=== PATIENT | male | born 1945 | race Caucasian/White ===

== ENCOUNTER 2019-07-03 10:19 | Inpatient (IN) | payer MEDICARE, OTHER ==
[2019-07-03 11:23] LABS: Hemoglobin 13.5 g/dL (14.0-18.0); Mean Corpuscular HGB CONC 34.1 g/dL (32.0-36.0); Mean Corpuscular Hemoglobin 34.2 pg (27.0-31.0); Mean Platelet Volume 7.8 fL (7.4-10.4); Platelet Count 132 thou/uL (130-400); RBC Distribution Width 11.5 % (11.5-14.5); Red Blood Cell (RBC) Count 3.95 mill/uL (4.70-6.10); White Blood Cell (WBC) Count 6.5 thou/uL (4.8-10.8)
[2019-07-03 11:33] LABS: Bilirubin 2+ (Negative); Blood, Urine Negative (Negative); Clarity Clear (Clear); Glucose, Urine (Dipstick) Normal (Negative); Leukocyte Negative Leu/uL (Negative); Nitrite Negative (Negative); Protein, Urine (Dipstick) 20 mg/dL (Neg-Trace)
[2019-07-03 11:39] LABS: Eosinophils 4 % (0-10); Large Platelets MODERATE; Lymphocytes 8 % (21-51); MDiff Complete? YES; Monocytes 24 % (0-10); Neutrophil 62 % (42-75); Platelet Morphology Comment Appears Adequate; Reactive Lymphocytes 1 % (0-10)
[2019-07-03 11:44] LABS: ALT (SGPT) 44 U/L (8-55); AST (SGOT) 37 U/L (5-34); Albumin 3.8 g/dL (3.4-4.8); Alcohol Less than 10 mg/dL (Less than 10); Alkaline Phosphatase 62 U/L (40-110); Anion Gap 12 mmol/L (10-20); BUN (Urea Nitrogen) 18 mg/dL (8.4-25.7); Bilirubin, Total 0.5 mg/dL (0.2-1.2); Calc. Creatinine Clearance 0 mL/min (70-130); Calcium 8.9 mg/dL (7.8-10.44); Carbon Dioxide 27 mmol/L (23-31); Chloride 99 mmol/L (98-107); Estimated GFR-MDRD Greater than 90; Globulin 2.8 g/dL (2.4-3.5); Glucose 110 mg/dL (83-110); Lipase 17 U/L (8-78); Magnesium 1.7 mg/dL (1.6-2.6); Potassium 3.8 mmol/L (3.5-5.1); Protein, Total 6.6 g/dL (5.8-8.1); Sodium 134 mmol/L (136-145)
--- NOTE | 2019-07-03 11:52 | RAD ---
EXAM: Single view of the chest HISTORY: Dyspnea COMPARISON: None FINDINGS: Single view of the chest shows a normal sized cardiomediastinal silhouette. There is no delilah dence of consolidation, mass, or pleural effusion. Degenerative changes are seen in the spine. IMPRESSION: No evidence of acute cardiopulmonary disease
--- NOTE | 2019-07-03 12:11 | CT ---
CT BRAIN WITHOUT CONTRAST: HISTORY: Fall. Weakness. Dizziness. COMPARISON: None. FINDINGS: Mild atrophy and moderate microvascular ischemic changes, chronic. No acute hemorrhage or infarct. No midline shift. No mass effect. The calvarium is intact. Paranasal sinuses and mastoids are clear. IMPRESSION: Chronic changes. No acute intracranial abnormality. POS: CET
[2019-07-03] MEDS ORDERED: Aspirin Chewable 81 MG TAB ONE (12:53)
[2019-07-03 14:38] LABS: Troponin I Less than 0.010 ng/mL (< 0.028)
[2019-07-03] MEDS ORDERED: HYDROcodone/Acetaminophen 5/325 mg Tablet PO PRN (14:38)
[2019-07-03] MEDS ORDERED: Senokot S 8.6-50 MG TAB PO PRN (14:38)
[2019-07-03] MEDS ORDERED: HumaLOG 300 UNITS/3 ML VIAL SC PRN (14:38)
[2019-07-03] MEDS ORDERED: Ondansetron PF 4 MG/2 ML Vial IVP PRN (14:38)
[2019-07-03] MEDS ORDERED: Dextrose 5% in Water 1,000 ML IV PRN (14:38)
[2019-07-03] MEDS ORDERED: Ondansetron ODT 4 MG TAB PO PRN (14:38)
[2019-07-03] MEDS ORDERED: Bisacodyl 10 MG SUPP PR PRN (14:38)
[2019-07-03] MEDS ORDERED: Dextrose 50% Abboject 50 ML SYRINGE SLOW IVP PRN (14:38)
[2019-07-03] MEDS ORDERED: Enoxaparin Sodium 40 MG/0.4 ML SYRINGE SC SCH (14:45)
--- NOTE | 2019-07-03 15:51 | MRI ---
EXAM: MRI of the brain without contrast HISTORY: Bilateral leg weakness for a few days COMPARISON: CT brain 07/03/2019 TECHNIQUE: Multiplanar multisequence MR images were obtained of the brain without IV contrast. FINDINGS: Scattered foci of high T2/FLAIR signal in the subcortical and periventricular white matter are likely secondary to small vessel ischemic disease. No restricted diffusion. No hydronephrosis. No extra-axial fluid collection or intracranial hemorrhage. The expected flow voids are present. Corpus callosum, pituitary, and craniocervical junction are within normal limits. The calvarium is unremarkable. A 1.5 cm well-circumscribed focus of low T1 and T2 signal is seen in t he posterior left parietal scalp which corresponds to the calcified mass on CT. The paranasal sinuses and mastoid air cells are well aerated. IMPRESSION: No evidence of acute intracranial abnormality.
--- NOTE | 2019-07-03 16:23 | HP ---
PRIMARY CARE PHYSICIAN: Out of town physician. CHIEF COMPLAINT: Lower extremity weakness. HISTORY OF PRESENT ILLNESS: A 74-year-old male with known history of degenerative joint disease, prediabetes, who presented to the hospital due to acute worsening of lower extremity weakness. The patient reported progressive lower extremity weakness since about 1 week , culminating in inability to get out of bed earlier today, hence was taken to the ER in [place], from where he was transferred over here. The patient is not a very eloquent historian. Following history was obtained from review of medical record and talking with the patient. Spouse however is not at the bedside at present. Reportedly, the patient has been having worsening lower extremity weakness since about 1 week, associated with falls. Earlier today, he was unable to get out of bed, hence took him to the ER in [place], from where he was transferred over here. The patient also reported cough with pleuritic chest pain, but denied shortness of breath, fever, nausea, vomiting, headache, dizziness, abdominal pain, back pain, dysuria, hematuria, urinary retention, or painful micturition. He also denied leg swelling, focal weakness other than bilateral lower extremity weakness, change in vision, vertigo, or change in hearing or double vision. He also denied confusion, slurred speech, or facial droop. For unclear reason, acute CVA was considered, necessitating admission for further evaluation. The patient also denied back or neck pain. He admitted to occasional alcohol use, but denied bingeing on alcohol with last drink being about 3 weeks ago. In the ER, the patient was evaluated with CT scan of the brain, which was unremarkable. There is some confusion as to the onset of symptoms, initially said to be one week, somehow in the note, it was also said the patient has symptoms started about 2 days ago. There was also a report of vertigo, but the patient denied dizziness or head spinning. It was also reported in the note that the patient had a fall, but the patient denied falling. It also was reported that there is some confusion; however, the patient seems appropriate, though not a very good historian. PAST MEDICAL HISTORY: 1. Prediabetes. 2. Degenerative joint disease. 3. BPH. 4. Questionable hypertension as the patient's medication showed lisinopril, though the patient reported that, that is his 's medication, but clearly the patient name is on the tab. Also, the patient was prescribed Tamiflu yesterday, July 02, 2019, but he denied having nasal congestion or fever and reported that the Tamiflu was for prevention of flu. PAST SURGICAL HISTORY: Tonsillectomy. FAMILY HISTORY: Significant for leukemia in both parents. SOCIAL HISTORY: The patient lives with spouse. Drinks alcohol occasionally with last drink being about 3 weeks ago when he took four cans of beer. He denied smoking or recreational drug use. He wants to be full code with spouse being the surrogate decision maker. ALLERGIES: PENICILLIN. HOME MEDICATIONS: 1. Flomax 0.4 mg p.o. daily. 2. Bumetanide 1 mg p.o. once a day p.r.n. for swelling. 3. Methocarbamol 500 mg 1 to 2 tablets daily. 4. Myrbetriq 25 mg p.o. daily. 5. Alendronate 70 mg p.o. weekly. 6. Lisinopril 2.5 mg daily. 7. Oxaprozin 600 mg b.i.d. 8. Tamiflu 75 mg once a day. 9. Meloxicam 15 mg once a day. 10. Venlafaxine 75 mg daily. 11. Metformin 500 mg b.i.d. 12. Etodolac 400 mg b.i.d. 13. Baclofen 10 mg four times a day as needed. REVIEW OF SYSTEMS: A 12-point review of systems was negative other than pertinent positives and negatives included in the history of present illness. PHYSICAL EXAMINATION: VITAL SIGNS: Temperature 98.8, pulse 92, respiratory rate 16, SpO2 of 95 on room air, blood pressure is 145/84. GENERAL: Obese male, in no obvious distress. Afebrile, anicteric, acyanotic. HEENT: Normocephalic and atraumatic. Oral mucosa is moist. NECK: Supple with no JVD. CARDIOVASCULAR: Regular rhythm and rate with soft systolic murmur. RESPIRATORY: Fair air entry bilaterally with no obvious crackle or rhonchi or use of accessory muscles. GI: Obese, soft, nontender, nondistended with normal bowel sounds. EXTREMITIES: Grossly normal looking, atraumatic with no edema or erythema. Distal pulses are palpable. PROFESSOR OF COUNSELING: Conscious, alert, oriented x3 with appropriate mental status. Cranial nerves 2 through 12 are grossly intact. The patient moves all extremities. Power is 4 to 5/5 in upper limbs and 3 to 4/5 in lower limbs. Mild tremor of upper limbs noted. Sensation is grossly normal. Gait was not tested. LABORATORY DATA: CBC showed WBC count of 6.5, hemoglobin of 13.5, MCV of 100, platelets of 132. CMP showed sodium of 134, potassium 3.8, chloride 99, CO2 of 27, BUN 18, creatinine 0.80, glucose 110, calcium 8.9, total bilirubin 0.5, AST 37, ALT 44, alkaline phosphatase 62, total protein 6.6, albumin 3.8, globulin 2.8. Lipase is 17. Magnesium is 1.7. Serial troponin has been unremarkable with initial one being 0.013 and 3 hours later 0.010. BNP is 83.4. Urinalysis showed yellow clear urine with pH of 6.0, specific gravity of 1.029, urine protein of 20, normal glucose, negative ketone, blood, nitrite, and leukocyte esterase. Toxicology showed plasma alcohol level of less than 10. EKG showed normal sinus rhythm with rate of 96. T-wave inversion in inferior and anterior leads III, aVF, and V1 to V3 noted. Chest x-ray showed normal-sized cardiomediastinal silhouette with no evidence of consolidation, mass, or pleural effusion. Degenerative changes are seen in the spine. CT scan of the brain without contrast showed mild atrophy and moderate microvascular ischemic changes, which are chronic with no acute hemorrhagic change or infarct. No midline shift or mass effect. Calvaria is intact with clear paranasal sinuses and mastoid. ASSESSMENT: 1. Acute lower extremity weakness and gait instability: Etiology is unclear. Acute cerebrovascular accident is a concern as well as medication induced muscular weakness is considered. The patient is on multiple muscle relaxants including baclofen and methocarbamol. 2. Physical deconditioning. 3. Abnormal EKG with T-wave inversion in leads III, aVF, V1 to V3. This is concerning for acute coronary syndrome. However, troponin has been unremarkable and the patient denied chest pain. 4. Pleuritic chest pain with cough: Chest x-ray was unremarkable. 5. Degenerative joint disease. 6. BPH, on Flomax and Myrbetriq. 7. Prediabetes, on metformin. PLAN: 1. We will admit the patient to the stroke unit. 2. We will get MRI of the brain to rule out acute CVA. 3. We will also get Neurology consult. 4. We will get PT, OT, and Speech to evaluate the patient. 5. We will also get echocardiogram to assess cardiac function. 6. We will get further troponin series. 7. We will hold all muscle relaxants at this time. 8. DVT prophylaxis with Lovenox will be commenced. 9. Diabetic diet will be commenced as well. 10. Code status, full code. Spouse is the surrogate decision maker. Further treatment to follow depending on hospital course. Job ID: [id number]
[2019-07-03 17:40] LABS: Troponin I Less than 0.010 ng/mL (< 0.028)
[2019-07-03 18:53] VITALS: BMI 39.6
[2019-07-03] MEDS: Famotidine 20 MG TAB PO SCH (22:03)
[2019-07-03] MEDS: Famotidine/PF 20 mg/2ml Vial SLOW IVP SCH (22:04)
[2019-07-03] MEDS: Atorvastatin Calcium 40 MG TAB PO SCH (22:04)
[2019-07-04 05:01] LABS: Albumin 3.6 g/dL (3.4-4.8); Anion Gap 14 mmol/L (10-20); BUN (Urea Nitrogen) 16 mg/dL (8.4-25.7); BUN/Creatinine Ratio 22.22; Calc. Creatinine Clearance 167 mL/min (70-130); Calcium 8.5 mg/dL (7.8-10.44); Carbon Dioxide 24 mmol/L (23-31); Cardiac Risk 3.9 (Less than 4.5); Chloride 102 mmol/L (98-107); Cholesterol 176 mg/dl (< 200 Desired); Estimated GFR-MDRD Greater than 90; Glucose 109 mg/dL (83-110); HDL Cholesterol 45 mg/dL (>60 Neg Risk); LDL Cholesterol, Calculated 118 mg/dL; Phosphorus 2.9 mg/dL (2.3-4.7); Potassium 3.5 mmol/L (3.5-5.1); Sodium 136 mmol/L (136-145); Triglycerides 67 mg/dL (Less than 150)
[2019-07-04 05:02] LABS: Band 4 % (5-11); Eosinophils 1 % (0-10); Hemoglobin 13.2 g/dL (14.0-18.0); Hypochromia SLIGHT = 6-15 cells (100X) (0-5/hpf); Lymphocytes 11 % (21-51); MDiff Complete? YES; Mean Corpuscular HGB CONC 34.5 g/dL (32.0-36.0); Mean Corpuscular Hemoglobin 34.3 pg (27.0-31.0); Mean Corpuscular Volume 99.6 fL (78.0-98.0); Mean Platelet Volume 8.1 fL (7.4-10.4); Monocytes 7 % (0-10); Neutrophil 77 % (42-75); Nucleated RBC 1 % (0); Platelet Count 136 thou/uL (130-400); Platelet Morphology Comment Appears Adequate; RBC Distribution Width 11.4 % (11.5-14.5); Red Blood Cell (RBC) Count 3.84 mill/uL (4.70-6.10); White Blood Cell (WBC) Count 8.1 thou/uL (4.8-10.8)
--- NOTE | 2019-07-04 07:58 | ULT ---
EXAM: Carotid ultrasound HISTORY: Stroke/TIA COMPARISON: None TECHNIQUE: Multiplanar grayscale and color Doppler images were obtained in a carotid ultrasound. Spec tral analysis of the Doppler waveforms were performed. FINDINGS: No significant plaque is visualized in either internal carotid artery. No significant plaque is seen in either common carotid artery. The Doppler waveforms are normal in the visualized vessels. Peak systolic velocity in the right internal carotid artery 60 cm/s. Peak systolic velocity in the right common carotid artery 65 cm/s. The right ICA/CCA ratio is 0.9. Peak systolic velocity in the left internal carotid artery 40 cm/s. Peak systolic velocity in the left common carotid artery 89 cm/s. The left ICA/CCA ratio is 0.4. Both vertebral arteries demonstrate antegrade flow without focal stenosis IMPRESSION: No evidence of hemodynamically significant stenosis.
[2019-07-04] MEDS: Famotidine/PF 20 mg/2ml Vial SLOW IVP SCH ×2 (08:48→20:02)
[2019-07-04] MEDS: Aspirin 325 mg Enteric Coated Tablet PO SCH (08:49)
[2019-07-04] MEDS: Enoxaparin Sodium 40 MG/0.4 ML SYRINGE SC SCH (08:49)
[2019-07-04] MEDS: Famotidine 20 MG TAB PO SCH ×2 (08:49→20:02)
--- NOTE | 2019-07-04 14:23 | PDOC.HOSPP ---
- Subjective Encounter Date: 07/04/19 Encounter Time: 09:17 Subjective: 74 y/o male with history of lumbar compression fracture following a fall in 2018 admitted with progressive lower extremity weakness and gait instability associated with a fall on 06/28/2019 admitted due to inability to get up from his bed concerning for acute CVA. Evaluation with CT and MRI brain were negative for acute CVA but patient was noted to have severe dysphagia and gait instability. Had low grade fever of 100.5 overnight. - Objective Vital Signs & Weight: Vital Signs (12 hours) Temp Pulse Pulse Pulse Resp BP BP 07/04/19 11:52 99.3 F 91 18 07/04/19 09:25 90 98 116/72 125/73 07/04/19 07:30 100.5 F H 85 20 07/04/19 04:00 98.7 F 89 20 07/04/19 03:11 89 BP Pulse Ox 07/04/19 11:52 126/72 88 L 07/04/19 09:25 07/04/19 07:30 131/76 92 L 07/04/19 04:00 134/62 93 L 07/04/19 03:11 134/62 Weight Weight 284 lb 8 oz Result Diagrams: 07/04/19 04:19 07/04/19 04:19 Additional Labs: Accuchecks 07/04/19 07/04/19 07/03/19 10:28 06:04 23:33 POC Glucose 103 104 137 H Hospitalist ROS - Medication Medications: Active Medications Generic Name Dose Route Start Last Admin Trade Name Freq PRN Reason Stop Dose Admin Aspirin 325 mg 07/04/19 09:00 07/04/19 08:49 Ecotrin PO 325 mg DAILY DAMON Administration Atorvastatin Calcium 40 mg 07/03/19 21:00 07/03/19 22:04 Lipitor PO 40 mg HS DAMON Administration Enoxaparin Sodium 40 mg 07/04/19 09:00 07/04/19 08:49 Lovenox SC 40 mg 0900 DAMON Administration Famotidine 20 mg 07/03/19 21:00 07/04/19 08:48 Pepcid SLOW IVP Not Given Q12HR DAMON Famotidine 20 mg 07/03/19 21:00 07/04/19 08:49 Pepcid PO 20 mg BID DAMON Administration Sodium Chloride 10 ml 07/03/19 14:38 07/03/19 22:03 Flush - Normal Saline IVF 10 ml PRN PRN Administration Saline Flush - Exam General Appearance: awake alert General - other findings: obese Eye: anicteric sclera ENT: normocephalic atraumatic, dry oral mucosa Neck: supple, symmetric, no JVD Heart: RRR Respiratory: no wheezes, no rales, no ronchi, normal chest expansion, no tachypnea Gastrointestinal: soft, non-tender, non-distended, normal bowel sounds Extremities: no cyanosis, no edema Neurological: cranial nerve grossly intact, no focal deficits Neurological - other findings: cranial nerves 2-12 are grossly intact. Power is decreased both lower limbs Psychiatric: A&O x 3 Hosp A/P (1) Oropharyngeal dysphagia Code(s): R13.12 - DYSPHAGIA, OROPHARYNGEAL PHASE Status: Acute (2) Gait instability Code(s): R26.81 - UNSTEADINESS ON FEET Status: Acute (3) Functional quadriplegia Code(s): R53.2 - FUNCTIONAL QUADRIPLEGIA Status: Acute (4) Obesity (BMI 35.0-39.9 without comorbidity) Code(s): E66.9 - OBESITY, UNSPECIFIED Status: Acute (5) Chronic back pain Code(s): M54.9 - DORSALGIA, UNSPECIFIED; G89.29 - OTHER CHRONIC PAIN Status: Acute (6) Aspiration into respiratory tract Code(s): T17.908A - UNSP FB IN RESP TRACT, PART UNSP CAUSING OTH INJURY, INIT Status: Acute (7) Prediabetes Code(s): R73.03 - PREDIABETES Status: Acute - Plan NPO Speech therapy to continue. Start gentle IVF therapy to maintain hydration. Case management to help with placement. Will benefit from inpatient rehab. Continue sliding scale insulin. hold muscle relaxants. DVT prophylaxis addressed.
[2019-07-04] MEDS ORDERED: D5 1/4 NS w/20 mEq KCL 1,000 ML IV SCH (14:45)
[2019-07-04] MEDS: Acetaminophen 325 MG TAB PO PRN (17:21)
[2019-07-04] MEDS: Atorvastatin Calcium 40 MG TAB PO SCH (20:02)
[2019-07-05] MEDS: Acetaminophen 325 MG TAB PO PRN ×3 (08:44→20:24)
[2019-07-05] MEDS: Enoxaparin Sodium 40 MG/0.4 ML SYRINGE SC SCH (08:44)
[2019-07-05] MEDS: Aspirin 325 mg Enteric Coated Tablet PO SCH (08:44)
[2019-07-05] MEDS: Famotidine 20 MG TAB PO SCH ×2 (08:44→20:24)
[2019-07-05] MEDS: Famotidine/PF 20 mg/2ml Vial SLOW IVP SCH ×2 (08:45→20:33)
--- NOTE | 2019-07-05 11:07 | RAD ---
Modified barium swallow: 07/05/2019 HISTORY: Unspecified dysphasia, feeding difficulties FINDINGS: Modified barium swallow was performed in conjunction with a member division of speech patho logy. The patient is imaged in the lateral projection swallowing various consistencies of barium. Secondary to body habitus and obscuration by the patient's shoulders, it is difficult to evaluate the level of the cords. There is penetration with multiple consistencies, including pureed material and thin liquids. There is probable aspiration with the thin liquids. Please see speech pathology for full detail and feeding recommendations. IMPRESSION: Modified barium swallow as detailed above.
--- NOTE | 2019-07-05 15:55 | PDOC.HOSPP ---
- Subjective Encounter Date: 07/05/19 Encounter Time: 08:53 Subjective: 74 y/o male with history of lumbar compression fracture following a fall in 2018 admitted with progressive lower extremity weakness and gait instability associated with a fall on 06/28/2019 admitted due to inability to get up from his bed concerning for acute CVA. Evaluation with CT and MRI brain were negative for acute CVA but patient was noted to have severe dysphagia and gait instability. having intermittent low grade fever as well as some upper respiratory symptoms. Reportedly had sick contact with gran child with flu. Denied SOB.Reported occasional pleuritic chest pain. - Objective Vital Signs & Weight: Vital Signs (12 hours) Temp Pulse Pulse Pulse Resp BP BP 07/05/19 15:49 99.5 F 75 20 07/05/19 11:46 97.7 F 75 17 07/05/19 09:02 79 80 134/78 136/79 07/05/19 07:35 100.6 F H 81 16 07/05/19 04:00 99.7 F H 84 18 BP Pulse Ox 07/05/19 15:49 113/73 92 L 07/05/19 11:46 128/77 94 L 07/05/19 09:02 07/05/19 07:35 118/68 92 L 07/05/19 04:00 122/71 94 L Weight Weight 284 lb 8 oz I&O: 07/04/19 07/05/19 07/06/19 06:59 06:59 06:59 Intake Total 2 1300 Balance 2 1300 Result Diagrams: 07/04/19 04:19 07/04/19 04:19 Additional Labs: Accuchecks 07/05/19 07/05/19 07/04/19 12:03 06:11 19:58 POC Glucose 121 H 113 H 118 H 07/04/19 17:05 POC Glucose 99 Hospitalist ROS - Medication Medications: Active Medications Generic Name Dose Route Start Last Admin Trade Name Freq PRN Reason Stop Dose Admin Acetaminophen 650 mg 07/03/19 14:38 07/04/19 17:21 Tylenol PO 650 mg Q4H PRN Administration Headache/Fever/Mild Pain (1-3) Aspirin 325 mg 07/04/19 09:00 07/05/19 08:44 Ecotrin PO 325 mg DAILY DAMON Administration Atorvastatin Calcium 40 mg 07/03/19 21:00 07/04/19 20:02 Lipitor PO Not Given HS DAMON Enoxaparin Sodium 40 mg 07/04/19 09:00 07/05/19 08:44 Lovenox SC 40 mg 0900 DAMON Administration Famotidine 20 mg 07/03/19 21:00 07/05/19 08:45 Pepcid SLOW IVP Not Given Q12HR DAMON Famotidine 20 mg 07/03/19 21:00 07/05/19 08:44 Pepcid PO 20 mg BID DAMON Administration Potassium Chloride 20 meq/ 1,010 mls @ 50 mls/hr 07/04/19 15:45 07/04/19 15: 52 Dextrose/Sodium Chloride IV 1,010 mls INF DAMON Administration Sodium Chloride 10 ml 07/03/19 14:38 07/04/19 20:03 Flush - Normal Saline IVF 10 ml PRN PRN Administration Saline Flush - Exam General Appearance: awake alert Eye: anicteric sclera ENT: normocephalic atraumatic, moist mucosa Neck: symmetric, no JVD Heart: RRR Respiratory: no wheezes, no rales, no ronchi, normal chest expansion Gastrointestinal: soft, non-tender, non-distended, normal bowel sounds Extremities: no cyanosis, no edema Neurological: cranial nerve grossly intact, no new deficit Neurological - other findings: memory lapses noted Psychiatric: A&O x 3 Hosp A/P (1) Oropharyngeal dysphagia Code(s): R13.12 - DYSPHAGIA, OROPHARYNGEAL PHASE Status: Acute (2) Gait instability Code(s): R26.81 - UNSTEADINESS ON FEET Status: Acute (3) Functional quadriplegia Code(s): R53.2 - FUNCTIONAL QUADRIPLEGIA Status: Acute (4) Obesity (BMI 35.0-39.9 without comorbidity) Code(s): E66.9 - OBESITY, UNSPECIFIED Status: Acute (5) Chronic back pain Code(s): M54.9 - DORSALGIA, UNSPECIFIED; G89.29 - OTHER CHRONIC PAIN Status: Acute (6) Aspiration into respiratory tract Code(s): T17.908A - UNSP FB IN RESP TRACT, PART UNSP CAUSING OTH INJURY, INIT Status: Acute (7) Prediabetes Code(s): R73.03 - PREDIABETES Status: Acute (8) Fever Code(s): R50.9 - FEVER, UNSPECIFIED Status: Acute - Plan Restart oral intake with dysphagic diet as per Speech Get Repiratory viral panel Continue insulin therapy PT/OT/TERRAPIN FISHER to continue Case management to help with placement. Continue sliding scale insulin. DVT prophylaxis addressed. Get ESR, CRP as well as repeat CBC and CMP in the am.
[2019-07-05] MEDS: Oseltamivir 75 MG CAP PO SCH (20:25)
[2019-07-05] MEDS: Atorvastatin Calcium 40 MG TAB PO SCH (20:25)
[2019-07-05] MEDS ORDERED: guaiFENesin 200 MG TAB PO PRN (21:02)
[2019-07-06 04:58] LABS: Hemoglobin 13.2 g/dL (14.0-18.0); Mean Corpuscular HGB CONC 33.6 g/dL (32.0-36.0); Mean Corpuscular Hemoglobin 33.7 pg (27.0-31.0); Mean Platelet Volume 7.9 fL (7.4-10.4); Platelet Count 132 thou/uL (130-400); RBC Distribution Width 11.4 % (11.5-14.5); Red Blood Cell (RBC) Count 3.92 mill/uL (4.70-6.10); White Blood Cell (WBC) Count 5.1 thou/uL (4.8-10.8)
[2019-07-06 05:19] LABS: ALT (SGPT) 36 U/L (8-55); AST (SGOT) 41 U/L (5-34); Albumin 3.3 g/dL (3.4-4.8); Alkaline Phosphatase 60 U/L (40-110); Anion Gap 11 mmol/L (10-20); BUN (Urea Nitrogen) 16 mg/dL (8.4-25.7); Bilirubin, Total 0.7 mg/dL (0.2-1.2); CRP (Inflammatory) 4.46 mg/dL (= or < 0.5); Calc. Creatinine Clearance 167 mL/min (70-130); Calcium 8.5 mg/dL (7.8-10.44); Carbon Dioxide 27 mmol/L (23-31); Chloride 103 mmol/L (98-107); Estimated GFR-MDRD Greater than 90; Globulin 2.7 g/dL (2.4-3.5); Glucose 103 mg/dL (83-110); Potassium 3.6 mmol/L (3.5-5.1); Sodium 137 mmol/L (136-145)
[2019-07-06] MEDS: Famotidine 20 MG TAB PO SCH ×2 (09:13→21:31)
[2019-07-06] MEDS: Aspirin 325 mg Enteric Coated Tablet PO SCH (09:13)
[2019-07-06] MEDS: Oseltamivir 75 MG CAP PO SCH ×2 (09:14→21:31)
[2019-07-06] MEDS: Enoxaparin Sodium 40 MG/0.4 ML SYRINGE SC SCH (09:15)
--- NOTE | 2019-07-06 10:56 | CON ---
DATE OF CONSULTATION: 07/04/2019 Date of telemedicine consult: 07/04/2019. CHIEF COMPLAINT: Weakness. HISTORY OF PRESENT ILLNESS: The patient is a 74-year-old man, who reports in February, he had a fracture in the T9 vertebra after a fall. He saw Dr. Sena, Neurosurgery, and he was given back brace full-time plus physical therapy. His last physical therapy ended in April. He has been having increasing falls. He fell last Friday. ER visit was done. He is usually not on a walker. He is not getting around well. He fell at home yesterday again. He tends to shuffle. He has no tremor. No constipation or bladder problems. Sense of smell is preserved. He does have slowness of activities of daily living. His volume is lowered. PREVIOUS MEDICAL HISTORY: Positive for hypertension. PREVIOUS SURGICAL HISTORY: None major. FAMILY HISTORY: Father at 90 of natural causes. Mother at 83. One brother from painkiller abuse at 54. His 2 daughters are healthy. SOCIAL HISTORY: He lives with his family. He does not smoke or drink. REVIEW OF SYSTEMS: PULMONARY: Negative for shortness of breath or cough. GI: Negative for nausea, vomiting, or diarrhea. NEUROLOGIC: Positive for slowness, shuffling, and falls. DERMATOLOGIC: Negative for any rash. OPHTHALMOLOGIC: Negative for vision issues. PSYCHIATRIC: Negative for depression or anxiety. LABORATORY WORKUP: White count 8.1, hemoglobin 13.2, hematocrit 38.3, platelet count 136. Chemistry; sodium 136, potassium 3.5, chloride 102, bicarb 24, BUN 16, creatinine 0.72, and glucose 109. Plasma alcohol less than 10. Urinalysis is negative. IMAGING STUDIES: MRI has been done yesterday, and his MRI shows no evidence of any acute intracranial abnormality. He does have some white matter changes. PHYSICAL EXAMINATION: VITAL SIGNS: Temperature 99.7, respiratory rate 16, O2 saturation 91, blood pressure 116/72 on second occasion. There was no orthostatic hypotension noted. GENERAL APPEARANCE: Well-built, well-nourished man, who seems to have slight hypomania, hypophonia, and generalized bradykinesia. CHEST: Clear vesicular breathing. CARDIOVASCULAR: S1 and S2 heard. No murmurs. ABDOMEN: Soft. NEUROLOGIC: Higher intellectual functions; normal orientation to time, place, and person. Appropriate conversation. Cranial nerves 2 through 12; normal extraocular movements. No facial asymmetry. Normal sensation of face bilaterally. Tongue midline. No atrophy noted. Normal hearing to finger rub bilaterally. Motor; bulk normal, tone normal. Strength 5/5 throughout except in iliopsoas 4/5 bilaterally. Deep tendon reflexes were 2+. Sensory normal, and cerebellar normal. IMPRESSION: The patient is a 74-year-old man with history of falls and prior fractures as well. He has slowed down. His volume is lowered, but does not have any tremor and has been shuffling and uses a walker. He has been on excessive muscle relaxants as well, and these are being decreased per nursing staff. His examination shows mild weakness in both lower extremities. This exam is somewhat nonspecific to any particular etiology. He may have vascular parkinsonism or Parkinson disease, but without examining his gait and under circumstances during hospitalization, I do not feel comfortable saying he has idiopathic Parkinson disease. This diagnosis can be made at a later visit with Dr. Keys as outpatient. RECOMMENDATIONS: For now, agree with the plan to decrease his pain killers and muscle relaxers, and the patient can see Dr. Keys as outpatient. If needed, we can always start him on levodopa as inpatient. Job ID: [id number]
--- NOTE | 2019-07-06 12:31 | PDOC.HOSPP ---
- Subjective Encounter Date: 07/06/19 Encounter Time: 08:13 Subjective: 74 y/o male with history of lumbar compression fracture following a fall in 2018 admitted with progressive lower extremity weakness and gait instability associated with a fall on 06/28/2019 admitted due to inability to get up from his bed concerning for acute CVA. Evaluation with CT and MRI brain were negative for acute CVA but patient was noted to have severe dysphagia and gait instability. Also was having intermittent low grade fever as well as some upper respiratory symptoms. Further eval reveal influenza infection. Feeling better and tolerating dysphagic diet. - Objective Vital Signs & Weight: Vital Signs (12 hours) Temp Pulse Resp BP Pulse Ox 07/06/19 11:43 98 F 76 16 128/71 95 07/06/19 07:47 98 F 74 16 113/55 L 94 L 07/06/19 04:00 98.3 F 75 16 139/71 95 Weight Weight 284 lb 8 oz I&O: 07/05/19 07/06/19 07/07/19 06:59 06:59 06:59 Intake Total 2 2390 Balance 2 2390 Result Diagrams: 07/06/19 04:42 07/06/19 04:42 Additional Labs: Accuchecks 07/06/19 07/06/19 07/05/19 10:41 06:11 20:25 POC Glucose 148 H 105 115 H 07/05/19 16:52 POC Glucose 99 Hospitalist ROS - Medication Medications: Active Medications Generic Name Dose Route Start Last Admin Trade Name Freq PRN Reason Stop Dose Admin Acetaminophen 650 mg 07/03/19 14:38 07/05/19 20:24 Tylenol PO 650 mg Q4H PRN Administration Headache/Fever/Mild Pain (1-3) Aspirin 325 mg 07/04/19 09:00 07/06/19 09:13 Ecotrin PO 325 mg DAILY DAMON Administration Atorvastatin Calcium 40 mg 07/03/19 21:00 07/05/19 20:25 Lipitor PO 40 mg HS DAMON Administration Enoxaparin Sodium 40 mg 07/04/19 09:00 07/06/19 09:15 Lovenox SC 40 mg 0900 DAMON Administration Famotidine 20 mg 07/03/19 21:00 07/06/19 09:13 Pepcid PO 20 mg BID DAMON Administration Guaifenesin 200 mg 07/05/19 21:02 07/05/19 21:11 Organ-I Nr PO 200 mg Q4H PRN Administration Congestion Potassium Chloride 20 meq/ 1,010 mls @ 50 mls/hr 07/04/19 15:45 07/04/19 15: 52 Dextrose/Sodium Chloride IV 1,010 mls INF DAMON Administration Oseltamivir Phosphate 75 mg 07/05/19 21:00 07/06/19 09:14 Tamiflu PO 07/10/19 09:01 75 mg BID DAMON Administration Senna/Docusate Sodium 2 tab 07/03/19 14:38 07/06/19 09:14 Senokot S PO 2 tab BIDPRN PRN Administration Constipation Sodium Chloride 10 ml 07/03/19 14:38 07/04/19 20:03 Flush - Normal Saline IVF 10 ml PRN PRN Administration Saline Flush - Exam General Appearance: awake alert Eye: anicteric sclera ENT: normocephalic atraumatic Neck: symmetric, no JVD Heart: RRR Respiratory: no wheezes, no rales, no ronchi, normal chest expansion, no tachypnea Respiratory - other findings: fair air entry with some transmitted sound Gastrointestinal: soft, non-tender, non-distended, normal bowel sounds Extremities: no cyanosis, no edema Neurological: cranial nerve grossly intact, no new deficit Psychiatric: A&O x 3 Hosp A/P (1) Oropharyngeal dysphagia Code(s): R13.12 - DYSPHAGIA, OROPHARYNGEAL PHASE Status: Acute (2) Gait instability Code(s): R26.81 - UNSTEADINESS ON FEET Status: Acute (3) Functional quadriplegia Code(s): R53.2 - FUNCTIONAL QUADRIPLEGIA Status: Acute (4) Obesity (BMI 35.0-39.9 without comorbidity) Code(s): E66.9 - OBESITY, UNSPECIFIED Status: Acute (5) Chronic back pain Code(s): M54.9 - DORSALGIA, UNSPECIFIED; G89.29 - OTHER CHRONIC PAIN Status: Acute (6) Aspiration into respiratory tract Code(s): T17.908A - UNSP FB IN RESP TRACT, PART UNSP CAUSING OTH INJURY, INIT Status: Acute (7) Prediabetes Code(s): R73.03 - PREDIABETES Status: Acute (8) Fever Code(s): R50.9 - FEVER, UNSPECIFIED Status: Acute (9) Influenza A H1N1 infection Code(s): J10.1 - FLU DUE TO OTH IDENT INFLUENZA VIRUS W OTH RESP MANIFEST Status: Acute - Plan Started tamiflu Continue insulin therapy 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 DVT prophylaxis addressed. For discharge once placement is concluded
[2019-07-06] MEDS: Benzonatate 100 MG CAP PO PRN (19:09)
[2019-07-06] MEDS: Atorvastatin Calcium 40 MG TAB PO SCH (21:31)
[2019-07-07] MEDS: Enoxaparin Sodium 40 MG/0.4 ML SYRINGE SC SCH (09:16)
[2019-07-07] MEDS: Aspirin 325 mg Enteric Coated Tablet PO SCH (09:16)
[2019-07-07] MEDS: Famotidine 20 MG TAB PO SCH ×2 (09:16→21:23)
[2019-07-07] MEDS: Benzonatate 100 MG CAP PO PRN ×2 (09:17→15:13)
[2019-07-07] MEDS: Oseltamivir 75 MG CAP PO SCH ×2 (09:17→21:23)
[2019-07-07] MEDS: Acetaminophen 325 MG TAB PO PRN (15:13)
--- NOTE | 2019-07-07 16:22 | PDOC.HOSPP ---
- Subjective Subjective: Seen and examined on medical unit with telemetry. Follow up on fall times two over the past several weeks. Patient found to be flew positive. Generalized weakness, dysphasia, being worked up for cerebrovascular accident which has been benign. Patient being worked with by speech therapy who is modified his diet to avoid aspiration. Patient sitting upright, breathing comfortably on room air. Patient eating his breakfast though he states he does not like the consistency of his "babyfood". Patient does complain of a cough, adding test lung pearls. Patient with T9 fracture was recommended by neurosurgery to wearing a brace and no surgical intervention. Patient pending rehabilitation placement. - Objective Vital Signs & Weight: Vital Signs (12 hours) Temp Pulse Pulse Resp BP BP Pulse Ox 07/07/19 15:30 97.6 F 76 20 132/74 97 07/07/19 11:43 98.2 F 65 20 130/72 94 L 07/07/19 08:58 83 112/60 07/07/19 08:00 98.5 F 78 18 140/68 95 Weight Weight 284 lb 8 oz I&O: 07/06/19 07/07/19 07/08/19 06:59 06:59 06:59 Intake Total 2390 1150 240 Balance 2390 1150 240 Result Diagrams: 07/06/19 04:42 07/06/19 04:42 Additional Labs: Accuchecks 07/07/19 07/07/19 07/06/19 11:50 06:21 20:34 POC Glucose 125 H 94 115 H 07/06/19 16:42 POC Glucose 94 Radiology Reviewed by me: Yes Hospitalist ROS - Review of Systems All other systems reviewed; all pertinent +/- noted in HPI/Subj - Medication Medications: Active Medications Generic Name Dose Route Start Last Admin Trade Name Freq PRN Reason Stop Dose Admin Acetaminophen 650 mg 07/03/19 14:38 07/07/19 15:13 Tylenol PO 650 mg Q4H PRN Administration Headache/Fever/Mild Pain (1-3) Aspirin 325 mg 07/04/19 09:00 07/07/19 09:16 Ecotrin PO 325 mg DAILY DAMON Administration Atorvastatin Calcium 40 mg 07/03/19 21:00 07/06/19 21:31 Lipitor PO 40 mg HS DAMON Administration Benzonatate 100 mg 07/05/19 21:02 07/07/19 15:13 Tessalon PO 100 mg TIDPRN PRN Administration Cough Enoxaparin Sodium 40 mg 07/04/19 09:00 07/07/19 09:16 Lovenox SC 40 mg 0900 DAMON Administration Famotidine 20 mg 07/03/19 21:00 07/07/19 09:16 Pepcid PO 20 mg BID DAMON Administration Guaifenesin 200 mg 07/05/19 21:02 07/05/19 21:11 Organ-I Nr PO 200 mg Q4H PRN Administration Congestion Oseltamivir Phosphate 75 mg 07/05/19 21:00 07/07/19 09:17 Tamiflu PO 07/10/19 09:01 75 mg BID DAMON Administration Senna/Docusate Sodium 2 tab 07/03/19 14:38 07/06/19 09:14 Senokot S PO 2 tab BIDPRN PRN Administration Constipation Sodium Chloride 10 ml 07/03/19 14:38 07/07/19 09:16 Flush - Normal Saline IVF 10 ml PRN PRN Administration Saline Flush - Exam General Appearance: NAD, awake alert Eye: PERRL, anicteric sclera ENT: normocephalic atraumatic, moist mucosa Neck: supple, symmetric, no lymphadenopathy Heart: no murmur, no gallops, no rubs Respiratory: CTAB, no wheezes, no rales, no ronchi, normal chest expansion, no tachypnea Gastrointestinal: soft, non-tender, non-distended, no guarding, no rigidity Extremities: no edema Skin: no lesions, no rashes Neurological: cranial nerve grossly intact, no focal deficits Musculoskeletal: generalized weakness Psychiatric: normal affect, normal behavior, A&O x 3 Hosp A/P (1) Aspiration into respiratory tract Code(s): T17.908A - UNSP FB IN RESP TRACT, PART UNSP CAUSING OTH INJURY, INIT Status: Acute (2) Chronic back pain Code(s): M54.9 - DORSALGIA, UNSPECIFIED; G89.29 - OTHER CHRONIC PAIN Status: Acute (3) Fever Code(s): R50.9 - FEVER, UNSPECIFIED Status: Acute (4) Gait instability Code(s): R26.81 - UNSTEADINESS ON FEET Status: Acute (5) Influenza A H1N1 infection Code(s): J10.1 - FLU DUE TO OTH IDENT INFLUENZA VIRUS W OTH RESP MANIFEST Status: Acute (6) Obesity (BMI 35.0-39.9 without comorbidity) Code(s): E66.9 - OBESITY, UNSPECIFIED Status: Acute (7) Oropharyngeal dysphagia Code(s): R13.12 - DYSPHAGIA, OROPHARYNGEAL PHASE Status: Acute (8) Prediabetes Code(s): R73.03 - PREDIABETES Status: Acute - Plan Plan: medical unit telemetry physical therapy/occupational therapy evaluation and treatment speech therapy evaluation and treatment diet consistency per speech therapy droplet precautions for fluid antiviral therapy no surgical intervention per neurosurgery where brace as recommended by neurosurgery patient with ataxia and frequent falls all questions answered in detail, patient happy with plan of care blood pressure control blood sugar control replace electrolytes as needed Disposition: planning for subacute placement, pending insurance approval
[2019-07-07] MEDS: Atorvastatin Calcium 40 MG TAB PO SCH (21:23)
[2019-07-08] MEDS: Famotidine 20 MG TAB PO SCH (08:42)
[2019-07-08] MEDS: Aspirin 325 mg Enteric Coated Tablet PO SCH (08:42)
[2019-07-08] MEDS: Enoxaparin Sodium 40 MG/0.4 ML SYRINGE SC SCH (08:43)
[2019-07-08] MEDS: Oseltamivir 75 MG CAP PO SCH (08:43)
--- NOTE | 2019-07-08 15:13 | PDOC.HOSPP ---
- Subjective Subjective: Seen and examined. Breathing comfortably on room air. Patient again voices his dissatisfaction with the consistency of the food. I have again educated him on why his food is being this consistency to avoid aspiration. Patient acknowledges this and states that sometimes he does cough when he is swallowing food and feels like "it goes into the wrong pipe". All questions answered in detail. Patient happy with plan of care. - Objective Vital Signs & Weight: Vital Signs (12 hours) Temp Pulse Resp BP Pulse Ox 07/08/19 11:26 97.6 F 73 16 139/86 96 07/08/19 07:36 97.8 F 74 16 111/71 95 07/08/19 05:04 98.1 F 78 20 142/55 H 93 L Weight Weight 284 lb 8 oz I&O: 07/07/19 07/08/19 07/09/19 06:59 06:59 06:59 Intake Total 1150 1020 Balance 1150 1020 Result Diagrams: 07/06/19 04:42 07/06/19 04:42 Additional Labs: Accuchecks 07/08/19 07/08/19 07/07/19 10:24 06:08 22:20 POC Glucose 154 H 104 105 07/07/19 16:38 POC Glucose 122 H Radiology Reviewed by me: Yes Hospitalist ROS - Review of Systems All other systems reviewed; all pertinent +/- noted in HPI/Subj - Medication Medications: Active Medications Generic Name Dose Route Start Last Admin Trade Name Freq PRN Reason Stop Dose Admin Acetaminophen 650 mg 07/03/19 14:38 07/07/19 15:13 Tylenol PO 650 mg Q4H PRN Administration Headache/Fever/Mild Pain (1-3) Aspirin 325 mg 07/04/19 09:00 07/08/19 08:42 Ecotrin PO 325 mg DAILY DAMON Administration Atorvastatin Calcium 40 mg 07/03/19 21:00 07/07/19 21:23 Lipitor PO 40 mg HS DAMON Administration Benzonatate 100 mg 07/05/19 21:02 07/07/19 15:13 Tessalon PO 100 mg TIDPRN PRN Administration Cough Enoxaparin Sodium 40 mg 07/04/19 09:00 07/08/19 08:43 Lovenox SC 40 mg 0900 DAMON Administration Famotidine 20 mg 07/03/19 21:00 07/08/19 08:42 Pepcid PO 20 mg BID DAMON Administration Guaifenesin 200 mg 07/05/19 21:02 07/05/19 21:11 Organ-I Nr PO 200 mg Q4H PRN Administration Congestion Oseltamivir Phosphate 75 mg 07/05/19 21:00 07/08/19 08:43 Tamiflu PO 07/10/19 09:01 75 mg BID DAMON Administration Senna/Docusate Sodium 2 tab 07/03/19 14:38 07/06/19 09:14 Senokot S PO 2 tab BIDPRN PRN Administration Constipation Sodium Chloride 10 ml 07/03/19 14:38 07/07/19 09:16 Flush - Normal Saline IVF 10 ml PRN PRN Administration Saline Flush - Exam General Appearance: NAD, awake alert Eye: anicteric sclera ENT: normocephalic atraumatic, moist mucosa Neck: supple, symmetric, no lymphadenopathy Heart: no murmur, no gallops, no rubs Respiratory: CTAB, no wheezes, no rales, no ronchi, normal chest expansion, no tachypnea Gastrointestinal: soft, non-tender, non-distended, no hepatomegaly, no guarding , no rigidity Extremities: no clubbing, no edema Skin: no lesions, no rashes Neurological: cranial nerve grossly intact, no focal deficits Musculoskeletal: generalized weakness Psychiatric: normal affect, normal behavior, A&O x 3 Hosp A/P (1) Aspiration into respiratory tract Code(s): T17.908A - UNSP FB IN RESP TRACT, PART UNSP CAUSING OTH INJURY, INIT Status: Acute (2) Chronic back pain Code(s): M54.9 - DORSALGIA, UNSPECIFIED; G89.29 - OTHER CHRONIC PAIN Status: Acute (3) Fever Code(s): R50.9 - FEVER, UNSPECIFIED Status: Acute (4) Gait instability Code(s): R26.81 - UNSTEADINESS ON FEET Status: Acute (5) Influenza A H1N1 infection Code(s): J10.1 - FLU DUE TO OTH IDENT INFLUENZA VIRUS W OTH RESP MANIFEST Status: Acute (6) Obesity (BMI 35.0-39.9 without comorbidity) Code(s): E66.9 - OBESITY, UNSPECIFIED Status: Acute (7) Oropharyngeal dysphagia Code(s): R13.12 - DYSPHAGIA, OROPHARYNGEAL PHASE Status: Acute (8) Prediabetes Code(s): R73.03 - PREDIABETES Status: Acute - Plan Plan: medical unit telemetry physical therapy/occupational therapy evaluation and treatment speech therapy evaluation and treatment diet consistency per speech therapy droplet precautions for flu antiviral therapy no surgical intervention per neurosurgery where brace as recommended by neurosurgery patient with ataxia and frequent falls all questions answered in detail, patient happy with plan of care blood pressure control blood sugar control replace electrolytes as needed Disposition: planning for subacute placement, pending insurance approval
[2019-07-08 16:10] VITALS: BP 135/77; TEMP 97.9
== END 2019-07-08 17:39 | DRG 205 ==
LOC: ERS 10:19 → ERHOLD 12:49 → 2SE 18:38
PROVIDERS: ADMIT Internal Medicine Nephrology; ATTEND Internal Medicine Nephrology
DX: T17.908A Unspecified foreign body in respiratory tract, part unspecified causing other injury, initial encounter (principal); R53.2 Functional quadriplegia; J10.89 Influenza due to other identified influenza virus with other manifestations; N40.0 Benign prostatic hyperplasia without lower urinary tract symptoms; M19.90 Unspecified osteoarthritis, unspecified site; R73.03 Prediabetes; R26.81 Unsteadiness on feet; E66.9 Obesity, unspecified; M54.9 Dorsalgia, unspecified; G89.29 Other chronic pain; R53.81 Other malaise; R94.31 Abnormal electrocardiogram [ECG] [EKG]; R13.12 Dysphagia, oropharyngeal phase; Z90.89 Acquired absence of other organs; Z88.0 Allergy status to penicillin; Z79.899 Other long term (current) drug therapy; Z79.84 Long term (current) use of oral hypoglycemic drugs; Z68.39 Body mass index [BMI] 39.0-39.9, adult
CPT/HCPCS: 36415; 36416; 70450; 70551; 71045; 74230; 80053; 80061; 80069; 80307; 81003; 83690; 83735; 83880; 84484; 85025; 85027; 85652; 86140; 87633; 93005; 93306; 93880; J1650; J3480; J7042; S0028